=== PATIENT | female | born 1975 | race Caucasian/White ===

== ENCOUNTER → 2017-02-16 | Outpatient (CLI) | payer BC ==
--- NOTE | 2017-02-16 16:38 | RAD ---
Pelvic ultrasound, 02/16/2017: History: Heavy periods Transabdominal and transvaginal scans were obtained. The uterus measures 8.6 x 5.6 x 4.2 cm. A normal central uterine echo is seen. It measures 5 mm in greatest AP dimension. Several small Nabothian cysts are present. The ovaries are of normal size. A 1.8 cm simple cyst is present in the left ovary. A subcentimeter follicular cyst is present in the right ovary. There is blood flow in both ovaries. No adnexal mass is seen. No abnormal fluid is evident in the pelvis. IMPRESSION: 1. Small Nabothian cysts. 2. Small left ovarian cyst. 3. No significant pelvic abnormality is detected.
== END | disposition home or self-care (01) ==
LOC: US 14:36
PROVIDERS: ATTEND Physician Assistant Medical
DX: N93.8 Other specified abnormal uterine and vaginal bleeding (principal); N83.202 Unspecified ovarian cyst, left side; N88.8 Other specified noninflammatory disorders of cervix uteri
CPT/HCPCS: 76830; 76856

== ENCOUNTER → 2017-11-24 | Outpatient (CLI) | payer OTHER ==
[2017-11-24 16:49] LABS: BACTERIA,URINE FEW /HPF (0-FEW); BILIRUBIN,URINE SMALL (NEG); CLARITY,URINE HAZY; COLOR,URINE YELLOW; GLUCOSE,URINE 100 mg/dL (NEG); NITRITE,URINE POS (NEG); SQUAMOUS EPITHELIAL CELL,UR MANY /LPF; UROBILINOGEN,URINE 2 mg/dL (0.2 mg/dL)
== END | disposition home or self-care (01) ==
LOC: PMG 15:55
PROVIDERS: ATTEND Family Medicine
DX: R30.0 Dysuria (principal); E03.9 Hypothyroidism, unspecified
CPT/HCPCS: 81001; 87086

== ENCOUNTER 2018-11-16 14:42 | Emergency (ER) | payer OTHER ==
[~2018-11-16] VITALS: Ht 185.4 cm; Wt 122.5 kg
[2018-11-16] MEDS ORDERED: IV NORMAL SALINE 1,000ML 1,000 ML IV SCH (14:58)
[2018-11-16] MEDS ORDERED: ONDANSETRON PF 4 MG/2 ML VIAL. IV ONE (15:15)
[2018-11-16] MEDS ORDERED: KETOROLAC 30 MG/ML VIAL. IV ONE (15:15)
[2018-11-16 15:21] LABS: BASO # 0.1 x10^3/uL (0.0-0.2); BASO % 1 % (0-3); EOS % 0 % (0-3); HEMATOCRIT 41.2 % (36.0-47.0); HEMOGLOBIN 13.6 g/dL (12.0-15.5); LYMPH # 1.9 x10^3/uL (1.0-4.8); LYMPH % 25 % (24-48); MEAN CORPUSCULAR HEMOGLOBIN 30 pg (25-35); MEAN CORPUSCULAR HGB CONC 33 g/dL (31-37); MEAN CORPUSCULAR VOLUME 91 fL (79-100); MONO # 0.4 x10^3/uL (0.0-1.1); MONO % 6 % (0-9); NEUT # 5.1 x10^3uL (1.8-7.7); NEUT % 68 % (31-73); PLATELET COUNT 268 x10^3/uL (140-400); RED BLOOD COUNT 4.52 x10^6/uL (3.50-5.40); RED CELL DISTRIBUTION WIDTH 15.5 % (11.5-14.5); WHITE BLOOD COUNT 7.4 x10^3/uL (4.0-11.0)
[2018-11-16 15:35] LABS: ALBUMIN 3.5 g/dL (3.4-5.0); ALBUMIN/GLOBULIN RATIO 0.9 (1.0-1.7); CALCIUM 8.7 mg/dL (8.5-10.1); CREATININE 0.9 mg/dL (0.6-1.0); GFR 68.7; POTASSIUM 3.7 mmol/L (3.5-5.1); TOTAL BILIRUBIN 0.2 mg/dL (0.2-1.0); TOTAL PROTEIN 7.2 g/dL (6.4-8.2)
--- NOTE | 2018-11-16 15:51 | RAD ---
CT ABDOMEN PELVIS WO CONTRAST Indication: RIGHT FLANK PAIN WITH GROSS HEMATURIA ONSET TODAY Exposure: One or more of the following individualized dose reduction techniques were utilized for this examination: 1. Automated exposure control 2. Adjustment of the mA and/or kV according to patient size 3. Use of iterative reconstruction technique. Comparison: None are available. Contrast: No intravenous contrast given. No oral contrast per request. Evaluation of solid viscera, bowel and vasculature is compromised by the noncontrast technique. Lower thorax: Lung bases are clear. Liver: Unremarkable Spleen: Unremarkable Pancreas: Unremarkable Adrenals: No evidence of mass. Kidneys: No obvious mass. Urinary tracts: There are 2 tiny nonobstructive left renal calculi. No hydronephrosis or ureteric calculus. Gallbladder: Contracted, no calcified stone Aorta: Nonaneurysmal Lymph nodes: No significant enlargement GI tract: Mild diverticulosis. No evidence of acute colitis. No bowel obstruction. There is mild distention of some proximal small bowel loops, cannot define the wall due to the lack of internal fluid or contrast. Appendix is normal. Reproductive organs: Hypodense lesion in the right adnexa measures about 2 cm, probably a cyst, measures 5 Hounsfield units. Urinary bladder: Unremarkable. Peritoneum: No evidence of pneumoperitoneum. No free fluid. Abdominal wall: Small fat-containing umbilical hernia. There is a second small fat-containing anterior abdominal wall hernia just below this. No bowel herniation. Spine: Vertebral body height and alignment are intact. Bones: No destructive process identified. External Soft Tissue: No acute findings. IMPRESSION: 1. 2 tiny nonobstructive left renal calculi. No hydronephrosis or ureteric calculus. 2. Mild prominence of several small bowel loops, could indicate mild dilatation or wall thickening. Consider nonspecific enteritis. Electronically signed by: Lane Florentino MD (11/16/2018 3:46 PM) [email or web address]
--- NOTE | 2018-11-16 16:07 | PHYS DOC ---
Past History Past Medical History: Depression, Hypertension, Hypothyroid, Other Past Surgical History: Tubal ligation, Other Alcohol Use: Occasionally Drug Use: None Adult General Chief Complaint Chief Complaint: FLANK PAIN HPI HPI Patient is a 43 year old female who presents with complaining of sudden onset of right flank pain since this morning. Patient complaining of sharp pain in right flank without radiation as a constant pain that gradually getting worse and rated her pain 7/10. Patient denies nausea and vomiting, history of the same pain, urinary symptoms, fever and chills, abdominal pain. Patient was seen by his primary care physician and had hematuria in urine dipstick and sent to ER for evaluation of kidney stone. Review of Systems Review of Systems Constitutional: Denies fever or chills [] Eyes: Denies change in visual acuity, redness, or eye pain [] HENT: Denies nasal congestion or sore throat [] Respiratory: Denies cough or shortness of breath [] Cardiovascular: No additional information not addressed in HPI [] GI: Denies abdominal pain, nausea, vomiting, bloody stools or diarrhea [] : Denies dysuria, reports flank pain ,hematuria [] Musculoskeletal: Denies back pain or joint pain [] Integument: Denies rash or skin lesions [] Neurologic: Denies headache, focal weakness or sensory changes [] Endocrine: Denies polyuria or polydipsia [] All other systems were reviewed and found to be within normal limits, except as documented in this note. Current Medications Current Medications Current Medications Medications (Trade) Dose Ordered Sig/Toma Start Time Stop Time Status Last Admin Dose Admin Ketorolac Tromethamine (Toradol 30mg Vial) 30 mg 1X ONCE 11/16/18 15:15 11/16/18 15:16 DC 11/16/18 15:12 30 MG Ondansetron HCl (Zofran) 4 mg 1X ONCE 11/16/18 15:15 11/16/18 15:16 DC 11/16/18 15:12 4 MG Sodium Chloride 1,000 ml @ 100 mls/hr Q10H 11/16/18 14:58 11/17/18 00:57 11/16/18 15:13 100 MLS/HR Allergies Allergies Allergies Coded Allergies Type Severity Reaction Last Updated Verified Sulfa (Sulfonamide Antibiotics) Allergy Severe 11/16/18 Yes suture Allergy Severe 11/16/18 Yes Physical Exam Physical Exam Constitutional: Well developed, well nourished, moderate distress, non-toxic appearance. [] HENT: Normocephalic, atraumatic, oropharynx moist, no oral exudates, nose normal. [] Eyes: PERRLA, EOMI, conjunctiva normal, no discharge. [] Neck: Normal range of motion, no tenderness, supple, no stridor. [] Cardiovascular:Heart rate regular rhythm, no murmur [] Lungs & Thorax: Bilateral breath sounds clear to auscultation [] Abdomen: Bowel sounds normal, soft, no tenderness, no masses, no pulsatile masses. [] Skin: Warm, dry, no erythema, no rash. [] Back: No tenderness, no CVA tenderness. [] Extremities: No tenderness, no cyanosis, no clubbing, ROM intact, no edema. [] Neurologic: Alert and oriented X 3, normal motor function, normal sensory function, no focal deficits noted. [] Psychologic: Affect normal, judgement normal, mood normal. [] Current Patient Data Vital Signs Vital Signs Date Time Temp Pulse Resp B/P (MAP) Pulse Ox O2 Delivery O2 Flow Rate FiO2 11/16/18 14:49 97.8 91 20 97 Room Air Lab Results Laboratory Tests Test 11/16/18 15:07 White Blood Count 7.4 x10^3/uL (4.0-11.0) Red Blood Count 4.52 x10^6/uL (3.50-5.40) Hemoglobin 13.6 g/dL (12.0-15.5) Hematocrit 41.2 % (36.0-47.0) Mean Corpuscular Volume 91 fL (79-100) Mean Corpuscular Hemoglobin 30 pg (25-35) Mean Corpuscular Hemoglobin Concent 33 g/dL (31-37) Red Cell Distribution Width 15.5 % (11.5-14.5) H Platelet Count 268 x10^3/uL (140-400) Neutrophils (%) (Auto) 68 % (31-73) Lymphocytes (%) (Auto) 25 % (24-48) Monocytes (%) (Auto) 6 % (0-9) Eosinophils (%) (Auto) 0 % (0-3) Basophils (%) (Auto) 1 % (0-3) Neutrophils # (Auto) 5.1 x10^3uL (1.8-7.7) Lymphocytes # (Auto) 1.9 x10^3/uL (1.0-4.8) Monocytes # (Auto) 0.4 x10^3/uL (0.0-1.1) Eosinophils # (Auto) 0.0 x10^3/uL (0.0-0.7) Basophils # (Auto) 0.1 x10^3/uL (0.0-0.2) Sodium Level 142 mmol/L (136-145) Potassium Level 3.7 mmol/L (3.5-5.1) Chloride Level 102 mmol/L (98-107) Carbon Dioxide Level 29 mmol/L (21-32) Anion Gap 11 (6-14) Blood Urea Nitrogen 11 mg/dL (7-20) Creatinine 0.9 mg/dL (0.6-1.0) Estimated GFR (Cockcroft-Gault) 68.7 BUN/Creatinine Ratio 12 (6-20) Glucose Level 107 mg/dL (70-99) H Calcium Level 8.7 mg/dL (8.5-10.1) Total Bilirubin 0.2 mg/dL (0.2-1.0) Aspartate Amino Transferase (AST) 12 U/L (15-37) L Alanine Aminotransferase (ALT) 25 U/L (14-59) Alkaline Phosphatase 111 U/L (46-116) Total Protein 7.2 g/dL (6.4-8.2) Albumin 3.5 g/dL (3.4-5.0) Albumin/Globulin Ratio 0.9 (1.0-1.7) L Lipase 152 U/L (73-393) EKG EKG [] Radiology/Procedures Radiology/Procedures [][address] [id number] IMAGING REPORT Signed PATIENT: RAMONA RAINEY ACCOUNT: [id number] : 1975 LOCATION: ER AGE: 43 SEX: F EXAM STATUS: REG ER ORD. PHYSICIAN: BK ROBISON MD REASON: right flank pain, gross hematuria, onset today PROCEDURE: CT ABDOMEN PELVIS WO CONTRAST CT ABDOMEN PELVIS WO CONTRAST Indication: RIGHT FLANK PAIN WITH GROSS HEMATURIA ONSET TODAY Exposure: One or more of the following individualized dose reduction techniques were utilized for this examination: 1. Automated exposure control 2. Adjustment of the mA and/or kV according to patient size 3. Use of iterative reconstruction technique. Comparison: None are available. Contrast: No intravenous contrast given. No oral contrast per request. Evaluation of solid viscera, bowel and vasculature is compromised by the noncontrast technique. Lower thorax: Lung bases are clear. Liver: Unremarkable Spleen: Unremarkable Pancreas: Unremarkable Adrenals: No evidence of mass. Kidneys: No obvious mass. Urinary tracts: There are 2 tiny nonobstructive left renal calculi. No hydronephrosis or ureteric calculus. Gallbladder: Contracted, no calcified stone Aorta: Nonaneurysmal Lymph nodes: No significant enlargement GI tract: Mild diverticulosis. No evidence of acute colitis. No bowel obstruction. There is mild distention of some proximal small bowel loops, cannot define the wall due to the lack of internal fluid or contrast. Appendix is normal. Reproductive organs: Hypodense lesion in the right adnexa measures about 2 cm, probably a cyst, measures 5 Hounsfield units. Urinary bladder: Unremarkable. Peritoneum: No evidence of pneumoperitoneum. No free fluid. Abdominal wall: Small fat-containing umbilical hernia. There is a second small fat-containing anterior abdominal wall hernia just below this. No bowel herniation. Spine: Vertebral body height and alignment are intact. Bones: No destructive process identified. External Soft Tissue: No acute findings. IMPRESSION: 1. 2 tiny nonobstructive left renal calculi. No hydronephrosis or ureteric calculus. 2. Mild prominence of several small bowel loops, could indicate mild dilatation or wall thickening. Consider nonspecific enteritis. Electronically signed by: Lane Florentino MD (11/16/2018 3:46 PM) [email or web address] DICTATED AND SIGNED BY: LANE FLORENTINO MD DATE: 11/16/18 [id number] CC: BK ROBISON MD; SHAKA NORTH ~ Course & Med Decision Making Course & Med Decision Making Pertinent Labs and Imaging studies reviewed. (See chart for details) Evaluation of patient in ER showed 43-year-old female patient with complaining of sudden onset of right flank pain since this morning as a constant pain. Patient sent by her primary care physician after having hematuria with urine dipstick. Patient felt better with treatment in ER and did not have hematuria or infection her UA. CT showed kidney stone without ureteral stone. Patient was informed about test results and plan of care and is to follow-up with her primary care physician. Dragon Disclaimer Dragon Disclaimer This electronic medical record was generated, in whole or in part, using a voice recognition dictation system. Departure Departure: Impression: Primary Impression: Flank pain Disposition: HOME, SELF-CARE Condition: IMPROVED Referrals: SHAKA NORTH (PCP) Patient Instructions: Flank Pain Additional Instructions: Drink plenty of liquids Follow-up with your primary care physician in 3-5 days Return to ER if not getting better Scripts Tramadol Hcl (ULTRAM) 50 Mg Tablet 50 MG PO PRN Q6HRS PRN for PAIN, #20 TAB Prov: BK ROBISON MD 11/16/18 BK ROBISON MD Nov 16, 2018 16:07
[2018-11-16 16:30] LABS: BACTERIA,URINE FEW /HPF (0-FEW); BILIRUBIN,URINE NEG (NEG); CLARITY,URINE CLEAR; COLOR,URINE YELLOW; GLUCOSE,URINE NEG (NEG); NITRITE,URINE NEG (NEG); RBC,URINE 0 /HPF (0-2); SQUAMOUS EPITHELIAL CELL,UR OCC /LPF; UROBILINOGEN,URINE 0.2 mg/dL (0.2 mg/dL); WBC,URINE RARE /HPF (0-4)
[2018-11-16 16:45] VITALS: BP 113/78
[2018-11-16] MEDS ORDERED: TRAM-48 PO (16:47)
== END 2018-11-16 16:55 | disposition home or self-care (01) ==
LOC: ER 14:42
DX: R10.9 Unspecified abdominal pain (principal); R31.9 Hematuria, unspecified; N20.0 Calculus of kidney; F32.9 Major depressive disorder, single episode, unspecified; I10 Essential (primary) hypertension; E03.9 Hypothyroidism, unspecified; Z98.51 Tubal ligation status; Z88.2 Allergy status to sulfonamides; Z88.8 Allergy status to other drugs, medicaments and biological substances
CPT/HCPCS: 36415; 74176; 80053; 81001; 83690; 85025; 96374; 96375; 99284; J1885; J2405; J7030